=== PATIENT | male | born 1935 | race Caucasian/White ===

== ENCOUNTER 2019-10-13 14:25 | Inpatient (IN) ==
--- NOTE | 2019-10-13 15:38 | PROVIDER DOCUMENTATION ---
HPI-Musculoskeletal Pain/Inj - GENERAL Chief Complaint: Hip Injury Stated Complaint: FALL/R HIP PAIN Time Seen by Provider: 10/13/19 15:27 Source: patient - HX OF PRESENT ILLNESS-MUSKULOSKELTAL Nature of Presenting Problem: 84 yr old M, presenting after a fall - the patient was in his kitchen, when he slipped on something slick; he landed on his right hip, and also bumped the right side of his head; he denies LOC; the pt is not on blood thinners. Review of Systems - Adult - REVIEW OF SYSTEMS - ADULT Constitutional: reports: no symptoms reported Eyes: reports: no symptoms reported Ears, Nose, Mouth & Throat: reports: no symptoms reported Cardiovascular: reports: no symptoms reported Respiratory: reports: no symptoms reported Gastrointestinal: reports: no symptoms reported Genitourinary: reports: no symptoms reported Musculoskeletal: reports: see HPI Integumentary: reports: no symptoms reported Neurological: reports: no symptoms reported Psychiatric: reports: no symptoms reported Past History - Adult - PAST MEDICAL HISTORY-ADULT Review of Records: reports: Old Records Reviewed, Nursing Assessment Review Major Childhood Illnesses: reports: denies history Cardiovascular: reports: HTN Respiratory: reports: other (quit smoking 12 years ago) Gastrointestinal: reports: GI bleed, other (hx of obstruction/ colon resection) Obstetrical/Gynecological: reports: denies history Genitourinary: reports: prostate cancer Musculoskeletal: reports: arthritis Neurological: reports: CVA Psychiatric: reports: depression Endocrine/Immune: reports: denies history Other Conditions: reports: denies history - PRIOR SURGERIES/PROCEDURES Surgical/Procedure History: reports: bowel surgery, joint replacement. denies: recent surgery - PRIOR HOSPITALIZATIONS Prior Hospitalizations: reports: for similar symptoms - IMMUNIZATION STATUS Childhood Immunizations: UTD Flu Vaccine: NUTD - FAMILY HISTORY Family History: reviewed, not pertinent Physical Exam-Injury Related - Physical Exam-Injury Related Initial Vital Signs Reviewed: Yes General Appearance: appears well, alert, no apparent distress Immobilization?: negative: backboard, C-collar Eyes: PERRL/EOMI Head, Ears, Nose, Mouth & Throat: normocephalic/atraumatic, moist mucous membranes Respiratory: chest non-tender, lungs clear, normal breath sounds Cardiovascular: regular rate, rhythm Abdominal Exam: normal bowel sounds, non tender, soft Extremity: tenderness (moderate tenderness to the right hip; no obvious deformity or redness noted.), other (no obvious deformity or redness) Integumentary: normal color, warm/dry Neurologic: grossly normal, no motor/sensory deficits. negative: facial droop Psych/Mental Status: normal mood/affect, oriented x 3 - Glascow Coma Score Best Eye Response ([place]): (4) open spontaneously Best Verbal Response ([place]): (5) oriented Best Motor Response ([place]): (6) obeys commands Progress - PLAN OF CARE/RESULTS Progress/Plan/Lab Results: Vital Signs - 8 hr 10/13/19 14:30 10/13/19 18:28 10/13/19 19:01 Temperature 97.4 F L Pulse Rate 71 87 88 Respiratory Rate 22 21 23 Blood Pressure 123/68 149/74 119/81 O2 Sat by Pulse Oximetry 98 98 98 Laboratory Results - last 24 hr 10/13/19 10/13/19 10/13/19 19:55 19:55 19:55 WBC 12.83 H RBC 4.42 L Hgb 12.5 L Hct 38.0 L MCV 86.0 MCH 28.3 MCHC 32.9 L RDW Std Deviation 13.4 Plt Count 293 MPV 10.9 H Immature Gran % (Auto) 0.4 Neut % (Auto) 80.4 H Lymph % (Auto) 10.8 L Morris % (Auto) 8.1 Eos % (Auto) 0.2 Baso % (Auto) 0.1 Immature Gran # (Auto) 0.05 H Neut # (Auto) 10.32 H Lymph # (Auto) 1.38 Morris # (Auto) 1.04 H Eos # (Auto) 0.03 Baso # (Auto) 0.01 PT 13.8 INR 1.05 PTT (Actin FS) 28.9 Sodium 141 Potassium 4.2 Chloride 105 Carbon Dioxide 23 L Anion Gap 13 BUN 22 Creatinine 1.3 H Estimated GFR/1.73 m2 53 BUN/Creatinine Ratio 17 Glucose 140 H Calculated Osmolality 287 Calcium 9.2 Total Bilirubin 0.89 AST 15 ALT 9 L Alkaline Phosphatase 138 H Total Protein 6.0 L Albumin 3.8 Globulin 2.2 Albumin/Globulin Ratio 1.7 Orders Category Date Time Status Saline Loc NOW Care 10/13/19 18:39 Active CHEST-1 VIEW [RAD] Stat Exams 10/13/19 17:[address] HEAD/C-SPINE W/O CONTRAST [CT] Stat Exams 10/13/19 15:28 Completed FEMUR MIN 2 VIEWS RIGHT [RAD] Stat Exams 10/13/19 15:46 Completed XRAY PELVIS W/HIP 2-3VW RT [RAD] Stat Exams 10/13/19 15:27 Completed CBC WITH ELECTRONIC DIFF [HEME] Stat Lab 10/13/19 19:55 Completed COMPREHENSIVE METABOLIC PANEL [CHEM] Stat Lab 10/13/19 19:55 Completed PROTIME WITH INR [COAG] Stat Lab 10/13/19 19:55 Completed PTT [COAG] Stat Lab 10/13/19 19:55 Completed Ketorolac [Toradol] Med 10/13/19 16:24 Discontinued 60 mg IM NOW ONE Morphine Med 10/13/19 16:24 Discontinued 2 mg IM NOW ONE Result Diagrams: 10/13/19 19:55 10/13/19 19:55 - XRAY 1 XRAY: Right XRAY Study: Hip Impression: See EMR Report (baddly comminuted right hip fracture) - CT/MRI 1 CT Study: Cervical Spine, Head Impression: See EMR Report (no acute intracranial hemorrhage or infarct; pt has pre-exisiting C1 and C2 fractures that are stable, though with slightly more separation of the C2 fracture) - CONSULTS/PCP/HOSPITALIST Notification #1 *Consult/PCP/Hospitalist*: Dr. Red Time Discussed: 18:35 Consult Disposition: other (admit to hospitalist service, will consult) #2 Consult: Dr. Ding Time Discussed: 19:00 Consult Disposition: Admit Departure - Departure Date of Disposition Decision: 10/13/19 Time of Disposition Decision: 18:36 DIAGNOSIS: Intertrochanteric fracture of right hip Qualifiers: Encounter type: initial encounter Fracture type: closed Fracture alignment: displaced Qualified Code(s): S72.141A - Displaced intertrochanteric fracture of right femur, initial encounter for closed fracture Disposition: ADMITTED INPATIENT 09 Certified Medical Emergency: Emergent Condition: Stable Referrals and Follow-Ups: Jad Nance MD [Primary Care Provider] - - Critical Care Note This patient required my direct & personal management of CC.: No Attestation - Physician/ CHATA Attestation Patient care was provided by Advanced Practice Provider:: No The physician spent face to face time with patient:: Yes Advanced Practice Provider documentation review:: Supervising physician onsite and consulted in the evaluation and care of this patient. The physician did have a face to face encounter with the patient.
--- NOTE | 2019-10-13 16:02 | Diag Imaging Result Doc PS360 ---
EXAM : CT HEAD/C-SPINE W/O CONTRAST HISTORY: head injury/pain TECHNIQUE: 1. CT head without intravenous contrast 2. CT lumbar spine without intravenous contrast COMPARISON: 05/13/2019 FINDINGS: Head: No parenchymal hemorrhage. No epidural or subdural hematoma. No subarachnoid hemorrhage. There is mild atrophy. No mass identified on this noncontrasted exam. No hydrocephalus. No skull fracture. Cervical spine: The fractures to the anterior arch of the C1 vertebra and through the vessels of the C2 vertebra are again demonstrated. No change in appearance to the C1 fracture. The dens is slightly more on the current exam. No precervical hematoma on the current exam. There are degenerative changes in the lower cervical spine. IMPRESSION: Head: No hemorrhage. No injury. Cervical spine: Non healed fractures to the C1 and C2 vertebra. These were present on the prior exam although there is slightly more separation to the dens fracture, but there is no longer precervical soft tissue swelling. This exam was performed using automated exposure control, adjustment of mA or kV according to patient size, and/or use of iterative reconstruction technique. Electronically signed by Guanakito San 10/13/2019 3:59 PM
[2019-10-13] MEDS ORDERED: TORADOL IM ONE (16:24)
[2019-10-13] MEDS ORDERED: MORPHINE IM ONE (16:24)
--- NOTE | 2019-10-13 18:11 | Diag Imaging Result Doc PS360 ---
FEMUR MIN 2 VIEWS RIGHT - 10/13/2019 INDICATION: Fall TECHNIQUE: Five views COMPARISON: 05/13/2019 FINDINGS: There is a hip fracture. There are no distal fractures. IMPRESSION: No distal fractures. Electronically signed by Michael Carter 10/13/2019 6:09 PM
--- NOTE | 2019-10-13 18:12 | Diag Imaging Result Doc PS360 ---
CHEST-1 VIEW - 10/13/2019 INDICATION: fall COMPARISON: 04/30/2018 FINDINGS: The lungs are normally expanded and clear. Heart size and mediastinal contours are normal. No pneumothorax or pleural effusion. IMPRESSION: Negative exam. Electronically signed by Michael Carter 10/13/2019 6:10 PM
--- NOTE | 2019-10-13 18:12 | Diag Imaging Result Doc PS360 ---
XRAY PELVIS W/HIP 2-3VW RT - 10/13/2019 INDICATION: fall TECHNIQUE: Two views COMPARISON: None FINDINGS: There is a left hip prosthesis in good position. There are numerous surgical clips in the soft tissues of the pelvic floor. There is a displaced, badly comminuted, intertrochanteric right hip fracture. No dislocation. IMPRESSION: Badly comminuted, intertrochanteric right hip fracture. Electronically signed by Michael Carter 10/13/2019 6:09 PM
[2019-10-13 20:16] LABS: BASO# 0.01 X1000 (0.0-0.2); BASO% 0.1 % (0.0-0.8); EOS# 0.03 X1000 (0.0-0.7); EOS% 0.2 % (0.0-10.0); HEMOGLOBIN 12.5 g/dL (14.0-18.0); IMM GRAN# 0.05 X1000 (0.0-0.04); IMM GRAN% 0.4 % (0.0-0.5); LYMPH# 1.38 X1000 (1.2-3.4); LYMPH% 10.8 % (20.5-51.1); MCH 28.3 PG (27-31); MCHC 32.9 g/dL (33-37); MONO# 1.04 X1000 (0.11-0.59); MONO% 8.1 % (1.7-9.3); MPV 10.9 FL (7.4-10.4); NEUT# 10.32 X1000 (1.4-6.5); NEUT% 80.4 % (42.2-75.2); PLT 293 X1000 (130-400); RBC 4.42 XMIL (4.7-6.1); RDW 13.4 % (11.5-14.5); WBC 12.83 X1000 (4.8-10.8)
[2019-10-13 20:17] LABS: INR 1.05; PROTIME 13.8 Seconds (11.0-16.0)
[2019-10-13 20:18] LABS: PTT 28.9 Seconds (22.3-41.8)
[2019-10-13 20:26] LABS: ALB/GLOB RATIO 1.7; ALBUMIN 3.8 g/dL (3.5-5.0); CALCIUM 9.2 mg/dL (8.8-10.2); CREATININE 1.3 mg/dL (0.7-1.2); POTASSIUM 4.2 mmol/L (3.5-5.1); TOTAL BILIRUBIN 0.89 mg/dL (0.20-1.00)
[2019-10-13] MEDS ORDERED: NS 1,000 ML IV SCH (22:00)
[2019-10-13] MEDS: DILAUDID IV PRN (23:34)
[2019-10-13] MEDS: COLACE PO SCH (23:35)
--- NOTE | 2019-10-14 06:28 | HISTORY AND PHYSICAL ---
CHIEF COMPLAINT: Recent fall. HISTORY OF PRESENT ILLNESS: Mr. Roscoe Sosa is an 84-year-old male who has a history of hypertension, gastroesophageal reflux disease, history of prostate cancer as well as colon cancer. The patient sustained a fall prior to coming to the hospital. He denies any loss of consciousness after the fall. Impact was with the left hip region. He presented to the hospital. X-ray of the hip and pelvis showed evidence of a badly comminuted intertrochanteric right hip fracture. The patient has now been admitted to the floor now for further management. PAST MEDICAL HISTORY: Hypertension. Gastroesophageal reflux disease. Peptic ulcer disease. History of prostate cancer. Depression. History of previous CVA. History of colon cancer. PAST SURGICAL HISTORY: He has had lung resection. Cataract extraction. Prostatectomy. Colon resection. Carotid endarterectomy. SOCIAL HISTORY: No history of cigarette smoking. No alcohol or drug use. ALLERGIES: No known drug allergies. FAMILY HISTORY: Positive for hypertension as well as cancer. MEDICATIONS: His medications include the following. 1. Xanax 0.25 mg p.o. 3 times a day. 2. Benazepril 40 mg p.o. daily. 3. Coreg 6.25 mg p.o. twice a day. 4. Lasix 40 mg p.o. daily. 5. Acetaminophen 1 g q.6 hours. 6. Multivitamin 1 daily. 7. Amlodipine 5 mg p.o. daily. 8. Celexa 40 mg p.o. daily. 9. Colace 100 mg p.o. as directed. 10. Pantoprazole 40 mg p.o. daily. REVIEW OF SYSTEMS: Constitutional: No fever. NIGHT ASSISTANT: No headaches. Eyes: Uses glasses. ENT: He has some hearing loss, and also some sinus problems. Cardiovascular: No chest pain. Respiratory: He has cough. GI: He has some nausea. No abdominal pains. He has hemorrhoids. : No dysuria. Hematology: He has skin lesions. Musculoskeletal: He has joint pains. Hematology: No bleeding problems. Psychiatry: He has anxiety with depression. Endocrine: No thyroid disease or diabetes. PHYSICAL EXAMINATION: VITAL SIGNS: Temperature 98.7 degrees, pulses 83, respirations 20, blood pressure is 112/67, and oxygen saturation is 100%. HEENT: Atraumatic and normocephalic. He is anicteric. Pupils are poorly reactive to light. No oral lesions. NECK: No lymphadenopathy or thyromegaly. Supple. CARDIOVASCULAR: S1, S2. RESPIRATORY: There is evidence of good air entry bilaterally. ABDOMEN: Soft. Nontender. No masses felt. EXTREMITIES: No evidence of edema. CENTRAL NERVOUS SYSTEM: No obvious focal deficit noted. LABORATORY DATA: WBC is 12.83, hematocrit 38 with a platelet count of 293,000. INR is 1.05. Sodium is 141, potassium 4.2, chloride 105, bicarb 23, BUN is 22, and creatinine is 1.3. Alkaline phosphatase is 138. X-ray of chest with negative exam. Femoral x-ray with no distal fractures. CT of the head and cervical spine shows no hemorrhage or injury. There are non healed fractures of C1 and C2 vertebrae. ASSESSMENT AND PLAN: 1. Culminated intertrochanteric right hip fracture. Optimize pain control. Maintain patient on DVT prophylaxis. Consult with Orthopedics for repair of the fracture. 2. Non healed fracture involving C1 and C2 vertebrae. Maintain patient on cervical collar. Orthopedics evaluation. Optimize pain control. 3. Hypertension. Optimize blood pressure control. 4. Gastroesophageal reflux disease. Maintain patient on proton pump inhibitor. 5. History of depression. Continue SSRI. 6. DVT prophylaxis. Sequential compression devices. 7. Gastrointestinal prophylaxis. Proton pump inhibitor. PPI. cc: Luis Ding MD
[2019-10-14 06:51] LABS: BASO# 0.04 X1000 (0.0-0.2); BASO% 0.4 % (0.0-0.8); EOS# 0.13 X1000 (0.0-0.7); EOS% 1.2 % (0.0-10.0); HEMOGLOBIN 11.6 g/dL (14.0-18.0); IMM GRAN# 0.03 X1000 (0.0-0.04); IMM GRAN% 0.3 % (0.0-0.5); LYMPH# 1.67 X1000 (1.2-3.4); LYMPH% 15.5 % (20.5-51.1); MCH 28.4 PG (27-31); MCHC 32.2 g/dL (33-37); MONO# 1.69 X1000 (0.11-0.59); MONO% 15.7 % (1.7-9.3); MPV 11.1 FL (7.4-10.4); NEUT# 7.18 X1000 (1.4-6.5); NEUT% 66.9 % (42.2-75.2); PLT 245 X1000 (130-400); RBC 4.09 XMIL (4.7-6.1); RDW 13.9 % (11.5-14.5); WBC 10.74 X1000 (4.8-10.8)
[2019-10-14] MEDS ORDERED: KEFZOL 1 GM/D5W 1 GM/50 ML IVPB IV ONE (07:22)
[2019-10-14 07:23] LABS: ALB/GLOB RATIO 1.5; ALBUMIN 3.5 g/dL (3.5-5.0); CALCIUM 9.2 mg/dL (8.8-10.2); CREATININE 1.4 mg/dL (0.7-1.2); POTASSIUM 4.2 mmol/L (3.5-5.1); TOTAL BILIRUBIN 1.15 mg/dL (0.20-1.00); TOTAL PROTEIN 5.9 g/dL (6.3-8.3)
[2019-10-14] MEDS ORDERED: PEPCID PO SCH (09:00)
[2019-10-14] MEDS ORDERED: LYRICA PO SCH (09:00)
--- NOTE | 2019-10-14 10:30 | ORTHOPAEDICS CONSULTATION ---
DATE: 10/14/2019 CHIEF COMPLAINT: Right hip fracture. HISTORY OF PRESENT ILLNESS: Mr. Sosa is a pleasant 84-year-old male who states that he was in his home yesterday going from the living room to the kitchen when he turned and fell. He developed immediate pain in his right hip. He denies any loss of consciousness after the fall. He then presented to the emergency department where x-rays revealed a comminuted intertrochanteric right hip fracture. He has now been admitted to the floor for further management, and orthopedics has been consulted to manage his right hip fracture. PAST MEDICAL HISTORY: Hypertension, GERD, peptic ulcer disease, history of prostate cancer that has been treated, depression. PAST SURGICAL HISTORY: Lung mass removal, prostatectomy, colon resection, and carotid endarterectomy. SOCIAL HISTORY: Mr. Soas states that he used to smoke daily until 1993 when he quit. He denies any drug or alcohol use. ALLERGIES: He has an allergy to [place]. FAMILY HISTORY: Positive for hypertension and cancer. MEDICATIONS: His medications include: 1. Xanax 0.25 mg p.o. t.i.d. 2. Benazepril 40 mg p.o. daily. 3. Coreg 6.25 mg p.o. twice a day. 4. Lasix 40 mg p.o. daily. 5. Tylenol 1 gram p.o. every 6 hours. 6. Multivitamin once a day. 7. Amlodipine 5 mg p.o. daily. 8. Celexa 40 mg p.o. daily. 9. Colace 100 mg p.o. as directed. 10. Pantoprazole 40 mg p.o. daily. REVIEW OF SYSTEMS: Mr. Sosa has not had any fever, no vomiting, no diarrhea. He is complaining of right hip pain with movement. He has had no abdominal pain. He does have a history of anxiety and depression. PHYSICAL EXAMINATION: Vital Signs: A temperature of 98.5 degrees, heart rate of 80, and blood pressure of 125/86, and he is saturating 100% on room air at this time. General: He is lying in bed, in no acute distress at this time, and is very interactive and alert and oriented. Extremities: His right hip exam does reveal some swelling that is tender to gentle palpation. He has no open skin noted. His right lower extremity is shortened and externally rotated. His sensation is intact to his foot, and he is able to dorsiflex and plantar flex his foot, as well as wiggle his toes. LABORATORY DATA: Reveal white count of 10.7 and hemoglobin and hematocrit of 11.6 and 36. His creatinine is 1.3 as of admission. IMAGING DATA: He had a hip and pelvic x-ray which revealed a comminuted right intertrochanteric hip fracture. Head and cervical CT revealed nonhealed fractures of the C1 and C2 vertebrae that were present on the prior exam, a new c collar has been ordered by hospitalist. No acute intracranial abnormality. Chest x-ray was also noted to be normal. ASSESSMENT: Right intertrochanteric hip fracture. PLAN: Dr. Newton met with the family and Mr. Sosa this morning. The plan is to take him to the operating room today for an intramedullary nailing of the right femur. Risks and benefits of the surgery were explained to Mr. Sosa and his family by Dr. Newton which include, but are not limited to, risk of anesthesia, blood clot, bleeding, nerve injury, infection, and . The family and Mr. Sosa wishes to proceed with surgery today. He is being held n.p.o. at this time and is made aware. He will be getting 1 gram of Ancef en route to the operating room. Dictated by MATHEW Mariano for Liang Newton MD cc: Liang Newton MD [facility]
[2019-10-14] MEDS: DILAUDID IV PRN (10:31)
--- NOTE | 2019-10-14 11:25 | PROGRESS NOTE ---
DATE: 10/14/2019 SUBJECTIVE: The patient reports feeling fine. He just received 1 dose of Dilaudid for right hip pain, and he is doing okay. OBJECTIVE: Vital Signs: Temperature 98.3 degrees, heart rate 78, respiratory rate 20, blood pressure 117/59, O2 saturation 98% on room air. General: This is an 84-year-old, male, lying in bed in no acute distress. Cardiovascular: S1, S2 heard. No murmurs, gallops, or rubs. Regular rate and rhythm. Respiratory: Clear bilaterally to auscultation. No work of breathing or using accessory muscles. Abdomen: Soft, nontender to palpation. Bowel sounds present. No organomegaly. Extremities: No clubbing, cyanosis, or edema. Peripheral pulses present in both legs. Neurological: The patient is alert and oriented x3. Moves all 4 extremities. LABORATORY DATA: Reviewed. ASSESSMENT AND PLAN: 1. Right hip fracture. Orthopedics has been consulted, and they are planning to do surgery this afternoon. Will follow recommendations. 2. Non-healing fracture involving C1 and C2 vertebrae. That apparently is an old finding. The patient is not complaining of any pain at this point upon my evaluation. Will continue to monitor. 3. Hypertension. Blood pressure is under control. Will continue with the same medication. 4. Gastroesophageal reflux disease. Will continue with Protonix. 5. History of depression. Will continue with Celexa. The patient is doing fine. 6. Disposition. Will continue to monitor this patient closely. cc: Oracio Cotton MD
[2019-10-14] MEDS ORDERED: VERSED ONE (14:00)
[2019-10-14] MEDS ORDERED: DIPRIVAN 1% ONE ×2 (14:00→14:01)
[2019-10-14] MEDS ORDERED: FENTANYL ONE (14:00)
[2019-10-14] MEDS ORDERED: ROBINUL ONE (14:00)
[2019-10-14] MEDS ORDERED: XYLOCAINE-MPF 2% ONE (14:00)
[2019-10-14] MEDS ORDERED: OFIRMEV 1000 MG/ISOTONIC SOLN 1,000 MG/100 ML BOTTLE ONE (14:01)
[2019-10-14] MEDS ORDERED: DECADRON ONE (14:01)
[2019-10-14] MEDS ORDERED: NEO-SYNEPHRINE ONE (14:01)
[2019-10-14] MEDS ORDERED: NS 1,000 ML ONE (15:28)
[2019-10-14] MEDS ORDERED: OXY IR ONE (15:31)
[2019-10-14] MEDS ORDERED: ZOFRAN IV PRN (16:16)
[2019-10-14] MEDS ORDERED: MORPHINE IV PRN (16:16)
[2019-10-14] MEDS ORDERED: MILK OF MAGNESIA PO PRN (16:16)
[2019-10-14] MEDS ORDERED: HALDOL IV PRN (16:30)
[2019-10-14] MEDS: NORVASC PO SCH (17:56)
[2019-10-14] MEDS: CELEXA PO SCH (17:56)
[2019-10-14] MEDS: COLACE PO SCH ×3 (17:56→21:38)
[2019-10-14] MEDS: PROTONIX PO SCH (17:56)
[2019-10-14] MEDS: TYLENOL PO SCH (18:42)
[2019-10-14] MEDS: NS 1,000 ML IV SCH (18:46)
--- NOTE | 2019-10-14 20:12 | OPERATIVE NOTE ---
PROCEDURE DATE: 10/14/2019 PREOPERATIVE DIAGNOSIS: Right comminuted intertrochanteric femur fracture. POSTOPERATIVE DIAGNOSIS: Right comminuted intertrochanteric femur fracture. PROCEDURE: Intramedullary nailing of right femur with a Synthes 11 x 380 mm TFN nail. SURGEON: Dr. Newton. RUG LAYER: MATHEW Mariano, who was necessary for proper positioning and manipulation of the extremity during the case and improved efficiency. ANESTHESIA: Spinal. IV FLUIDS: 1000 mL lactated Ringer. ESTIMATED BLOOD LOSS: 100 mL. COMPLICATIONS: None. INDICATION: The patient is a pleasant 84-year-old male who is 1 day status post fall, sustaining a right comminuted intertrochanteric femur fracture. He presented to the emergency room and x- rays revealed the fracture. He was admitted to the hospital. Orthopedic consultation was requested. Recommendation to proceed with intramedullary nailing of the right femur was offered. Risks and benefits of surgery were explained, including the risks of anesthesia, , bleeding, infection, failure to relieve pain, postoperative stiffness, nerve injury, blood clots, and other imponderables. All questions were answered. The patient and family wished to proceed with surgery. DETAILS OF OPERATION: Patient taken to the operating room and placed supine on the operating table. Once adequate anesthesia was obtained, patient was placed supine on the fracture table. Reduction was then obtained with traction and gentle internal rotation. Had good alignment on both AP and lateral projections. After this was performed, the right lower extremity was subsequently prepped and draped in the usual sterile fashion. Approximately 3 fingerbreadths proximal to the greater trochanter, a lateral incision was made. Blunt dissection was performed in the gluteus salvador down to the tip of the greater trochanter. A guide pin was then placed in position. Guide pin was then advanced. Had good position confirmed with C-arm visualization in both AP and lateral projections. A starting reamer was then passed. After this had been performed, a ball-tip guide pin was then placed in the intramedullary canal. The length of the nail was determined to be 380 mm. A 12 mm reamer was easily passed down the femur here. An 11 x 380 mm Synthes TFN nail was then advanced. The ball-tip guide pin was then removed. Using the outrigger guide through an incision, the guide was then placed on the proximal femur. Guide pin was then advanced across the fracture site and into the femoral neck and head. Had good position in both AP and lateral projections. The lateral cortex was reamed. A 95 mm helical blade was then advanced and had good purchase. The proximal set screw was tightened in standard fashion. The attention was then turned to the distal femur. Using perfect alturas technique through 2 stab incisions, 2 distal locking screws were placed. Final C-arm visualization revealed good alignment of the fracture and good position of the hardware. Wounds were copiously irrigated. #1 Vicryl was used to repair the deep fascia in the proximal wound followed by 2-0 Vicryl in the 2 proximal wounds, and skin lizz in all the wounds. Adaptic was placed on each surgical incision. This was followed by 4x4s, ABD pad, and tape. The patient tolerated the procedure well. Was transferred to the recovery room in stable condition. cc: Liang Newton MD
[2019-10-14] MEDS: PERIDEX MT SCH (21:28)
[2019-10-14] MEDS: KEFZOL 1 GM/D5W 1 GM/50 ML IVPB IV SCH (21:28)
[2019-10-14] MEDS: XANAX PO SCH (21:28)
[2019-10-15] MEDS: NS 1,000 ML IV SCH (04:35)
[2019-10-15] MEDS: KEFZOL 1 GM/D5W 1 GM/50 ML IVPB IV SCH (04:36)
[2019-10-15] MEDS: XARELTO PO SCH (05:11)
[2019-10-15] MEDS: TYLENOL PO SCH ×3 (05:11→22:39)
[2019-10-15 07:37] LABS: HEMATOCRIT 29.8 % (42.0-52.0); HEMOGLOBIN 9.5 g/dL (14.0-18.0); MCHC 31.9 g/dL (33-37); MCV 87.9 FL (81-99); MPV 11.6 FL (7.4-10.4); RBC 3.39 XMIL (4.7-6.1); RDW 13.7 % (11.5-14.5); WBC 11.49 X1000 (4.8-10.8)
[2019-10-15 07:55] LABS: AGAP 7; BUN 21 mg/dL (8-22); CALCIUM 8.5 mg/dL (8.8-10.2); CHLORIDE 104 mmol/L (98-107); COSMO 280; CREATININE 1.1 mg/dL (0.7-1.2); ESTIMATED GFR > 60; GLUCOSE 120 mg/dL (70-104); POTASSIUM 4.5 mmol/L (3.5-5.1); SODIUM 138 mmol/L (136-145); TCO2 27 mmol/L (25-35)
[2019-10-15] MEDS: FERROUS SULFATE PO SCH (09:51)
[2019-10-15] MEDS: PERIDEX MT SCH ×2 (09:51→22:39)
[2019-10-15] MEDS: CELEXA PO SCH (09:51)
[2019-10-15] MEDS: OXY IR PO PRN (09:51)
[2019-10-15] MEDS: COLACE PO SCH ×3 (09:51→22:39)
[2019-10-15] MEDS: PROTONIX PO SCH (09:51)
[2019-10-15] MEDS: NORVASC PO SCH (09:51)
[2019-10-15] MEDS ORDERED: LASIX PO PRN (09:57)
--- NOTE | 2019-10-15 11:44 | ORTHOPAEDICS PROGRESS NOTE ---
DATE: 10/15/2019 SUBJECTIVE: The patient is an 84-year-old male who is 1 day status post intramedullary nailing of the right femur. He is currently resting comfortably. The patient also is approximately 6 months status post a fall where he had C1 and C2 fractures treated by Dr. Dean, nonoperatively. PHYSICAL EXAMINATION: The patient's right lower extremity dressing is intact. Calf is soft. He has active dorsiflexion, plantar flexion. The patient does have a C-collar in place. He is neurovascularly intact bilateral extremities. IMPRESSION: 1. Status post intramedullary nailing of the right femur. 2. Non-healed C1-C2 fractures. PLAN: Plan at this point, discussed treatment options. At this time patient will begin mobilization, will weight bear as tolerated right lower extremity. Dr. Dean is out of town this week and Dr. Pool, his partner, reviewed the CT scan and recommended maintaining him in a C- collar at this time until he is re-evaluated next week per Dr. Dean. All questions answered. cc: Liang Newton MD
--- NOTE | 2019-10-15 13:38 | PROGRESS NOTE ---
DATE: 10/15/2019 SUBJECTIVE: Patient reports feeling fine, although still pain in the right hip, but he is participating in physical therapy. Also, he is wearing a C-collar. OBJECTIVE: Vital Signs: Temperature 97.5, heart rate 74, respiratory rate 18, blood pressure 143/71, O2 saturation 96% on room air. General examination: This is an 84-year-old male, lying in bed in no acute distress. Cardiovascular: S1, S2 heard. No murmurs, gallops, or rubs. Regular rate and rhythm. Respiratory exam: Clear bilaterally to auscultation. No work of breathing or using accessory muscles. Neck: C-collar in place. Abdomen: Soft, nontender to palpation. Bowel sounds present. No organomegaly. Extremities: No clubbing, cyanosis, or edema. Peripheral pulses present in both legs. Neurological exam: Patient is alert and oriented x3. Moves 4 extremities. LABORATORY DATA: Reviewed. ASSESSMENT AND PLAN: 1. Right hip fracture, status post intramedullary nailing of the right femur. The patient reports feeling fine still having some pain, but he reports that with oral medication that he is receiving his pain is under control. We will continue with the same management. 2. Nonhealing fracture involving C1 and C2. Apparently his neurosurgeon, Dr. Dean is out of town according to orthopedic note. This patient needs to continue using his C- collar until he is seen in the office by his neurosurgeon. 3. Hypertension. Blood pressure is under control. We will continue with the same medication. 4. Gastroesophageal disease. We will continue with Protonix. 5. History of depression. Patient continues with Celexa. 6. Disposition: We will continue to monitor the patient closely. cc: Oracio Cotton MD [facility]
[2019-10-15] MEDS: LOTENSIN PO SCH (14:06)
[2019-10-15] MEDS: XANAX PO SCH (22:38)
[2019-10-15] MEDS: COREG PO SCH (22:38)
[2019-10-16] MEDS: TYLENOL PO SCH ×3 (05:44→14:13)
[2019-10-16 06:37] LABS: HEMATOCRIT 26.6 % (42.0-52.0); HEMOGLOBIN 8.7 g/dL (14.0-18.0); MCH 29.2 PG (27-31); MCHC 32.7 g/dL (33-37); MCV 89.3 FL (81-99); RBC 2.98 XMIL (4.7-6.1); RDW 13.8 % (11.5-14.5); WBC 11.19 X1000 (4.8-10.8)
[2019-10-16] MEDS: XARELTO PO SCH (06:43)
[2019-10-16 07:05] LABS: AGAP 8; BUN 18 mg/dL (8-22); CALCIUM 8.6 mg/dL (8.8-10.2); CHLORIDE 109 mmol/L (98-107); COSMO 283; CREATININE 1.1 mg/dL (0.7-1.2); ESTIMATED GFR > 60; GLUCOSE 101 mg/dL (70-104); SODIUM 141 mmol/L (136-145); TCO2 24 mmol/L (25-35)
[2019-10-16] MEDS: OXY IR PO PRN ×3 (08:14→17:01)
[2019-10-16] MEDS: FERROUS SULFATE PO SCH (10:03)
[2019-10-16] MEDS: PROTONIX PO SCH (10:03)
[2019-10-16] MEDS: COLACE PO SCH (10:03)
[2019-10-16] MEDS: CELEXA PO SCH (10:04)
[2019-10-16] MEDS: NORVASC PO SCH (10:04)
[2019-10-16] MEDS: LOTENSIN PO SCH (10:04)
[2019-10-16] MEDS: COREG PO SCH (10:04)
[2019-10-16] MEDS: PERIDEX MT SCH (10:05)
--- NOTE | 2019-10-16 11:04 | DISCHARGE SUMMARY ---
ADMISSION DATE: 10/13/2019 DISCHARGE DATE: 10/16/2019 DIAGNOSES: 1. Right femur fracture, status post intramedullary nailing on 10/14/2019. 2. Nonhealed C1 and C2 fractures. 3. Hypertension. 4. Gastroesophageal reflux disease. 5. History of depression. CONSULTANTS: Dr. Maliha Newton, orthopedics. DIAGNOSTICS: 1. On 10/13/2019, x-ray of the hip and pelvis reveals a badly comminuted intertrochanteric right hip fracture. 2. CT of the head and C-spine, the head reveals no hemorrhage, no injury. C- spine reveals nonhealed fractures to the C1 and C2 vertebra. They were present on the prior exam on 05/13/2019, although there is slightly more separation. There is no longer precervical soft tissue swelling. 3. 10/13/2019, femur fracture, hip fracture. No distal fractures. 4. 10/13/2019, chest x-ray, lungs are normally expanded and clear. Heart size and mediastinal contours are normal. No pneumothorax or pleural effusion. Negative exam. PROCEDURES: On 10/14/2019, intramedullary nailing of the right femur. HOSPITAL COURSE: Mr. Sosa presented to the emergency room after sustaining a fall. He was found to have a comminuted intertrochanteric right hip fracture for which he underwent intramedullary nailing on 10/14/2019. He is doing well. He walked 20 feet with a front-wheel walker moderate assist with physical therapy. Thankfully, he is ready for discharge to rehab. Mr. Sosa does have nonhealed fractures involving C1 and C2 from approximately 6 months prior. He is followed by Dr. Dean. Dr. Newton did discuss the patient with Dr. Jermaine Gerardo's partner. According to the chart, they reviewed the CT scan, recommended maintaining him in a C- collar at this time until Dr. Dean can reevaluate him next week. PHYSICAL EXAMINATION: Vital Signs: Discharge vital signs, blood pressure is 118/64 with a heart rate of 72, respirations 20, temperature is 98.5 degrees oral with room air saturations 96% to 100%. General: On physical exam, this is an 84-year-old gentleman who is sitting up in the bed in no distress. HEENT: Head is normocephalic, atraumatic. Mucous membranes are moist. Neck: Neck with C-collar in place. Cardiovascular: Regular rate and rhythm. S1 and S2 appreciated. No rubs, murmurs or gallops. Pulmonary: Breath sounds are clear. No increased work of breathing noted. Chest rises and falls symmetric with respiration. Gastrointestinal: Abdomen is soft, nontender, nondistended with bowel sounds in all 4 quadrants. Extremities: No clubbing, cyanosis, or edema. Peripheral pulses are palpable both legs. Neurologic: He is alert and oriented x3. FOLLOWUP: 1. Dr. Maliha Newton in [address] Nance. He will need to be seen in 1 to 2 weeks after discharge from rehab. 3. Dr. Dean, his neurosurgeon in [place]. He needs to keep his appointment scheduled next week. DISPOSITION: He is being discharged and transferred to rehab in stable condition. TIME SPENT: This is a greater than 30 minute discharge. Dictated by MATHEW Carmona for Oracio Cotton MD Addendum: Patient seen and examined by myself. Agree with MATHEW note. It reflects my assessment and plan. Patient is being discharged in stable condition. Will be sent to rehab facility and follow up with PCP upon discharge. cc: MATHEW Carmona MD [facility] HOSPITALGlenn
[2019-10-16 12:42] VITALS: BP 109/59
--- NOTE | 2019-10-16 13:14 | ORTHOPAEDICS PROGRESS NOTE ---
DATE: 10/16/2019 SUBJECTIVE: The patient is a pleasant 84-year-old male who is 2 days status post intramedullary nailing of the right femur. He is resting comfortably. Her C-collar was then placed. PHYSICAL EXAMINATION: Neck: Patient's C-collar is sitting well. Extremities: He is neurovascularly intact in bilateral upper extremities. On his right lower extremity, his dressing is intact. LABORATORY DATA: Pending. His hemoglobin and hematocrit from yesterday was 9.5 and 29.8. IMPRESSION: 1. Postoperative day #2 status post intramedullary nailing of the right femur. 2. Non healed C1, C2 fractures. PLAN: At this point, patient will continue to mobilize with physical therapy. Weightbearing as tolerated to the right lower extremity. He will be maintained in a C-collar at this time until re- evaluated by Dr. Dean next week. cc: Liang Newton MD
[2019-10-16] MEDS: NS 1,000 ML IV SCH (17:37)
== END 2019-10-16 17:05 | DRG 481 ==
LOC: SUPCPDRO → ED 14:25 → SUATTDRO 22:10 → 4N 22:10
PROVIDERS: ATTEND Internal Medicine